=== PATIENT | female | born 1990 | race Caucasian/White ===

== ENCOUNTER 2016-06-30 07:36 | Day surgery (SDC) | payer BC ==
[2016-06-26 17:29] LABS: HEMOGLOBIN 11.4 g/dL (12.0-16.0)
[2016-06-26 18:03] LABS: HEMATOCRIT 34.3 % (36.0-48.0)
--- NOTE | ~2016-06-30 | OP ---
Record Of Operation [facility] [address] [place]. [address] NAME: YAIMA JEWELL : 89 STATUS : REG [facility]#: [id number] AGE: 25 ADM/REG DATE : 06/30/16 MR#: [id number] REPORT SERV DATE: 06/30/16 DICTATED BY: ERASMO SMYTH DATE: 06/30/16 REPORT STATUS : Draft TRANSCRIBED BY: MODL DATE: 06/30/16 DATE OF PROCEDURE: 06/30/2016 PROCEDURE: Tonsillectomy and adenoidectomy. PREOPERATIVE DIAGNOSIS: Chronic tonsillitis. POSTOPERATIVE DIAGNOSIS: Chronic tonsillitis. ANESTHESIA: General endotracheal. COMPLICATION: None. FINDINGS: The patient was taken to the OR, placed in supine position. She then was anesthetized, prepped, and draped in standard fashion. McIvor mouth gag was inserted. Red rubber catheter was used to elevate the soft palate. Adenoids were removed with suction electrocautery under mirror visualization. Right tonsil was grasped with curved clamp and excised from its fossa by Coblation. Same procedure performed on the opposite side. Bipolar electrocautery used to achieve meticulous hemostasis. Bismuth placed in each tonsillar fossa. The patient was awakened, extubated, and taken to recovery in good condition. JARRELL/ELIZABETH Erasmo Smyth M.D. / [id number] CC: Lena Henderson CRYSTAL
[~2016-06-30 07:36] MED LIST: ADVIL PO; [UNRECOGNIZED DRUG - OTHER] PO
== END 2016-06-30 16:18 | disposition home or self-care (01) ==
LOC: SDC 07:36
PROVIDERS: Otolaryngology
PROC: 0CTQ0ZZ Resection of Adenoids, Open Approach (ICD-10-PCS; 2016-06-30)
PROC: 0CTPXZZ Resection of Tonsils, External Approach (ICD-10-PCS; principal; 2016-06-30 08:45)
DX: J35.01 Chronic tonsillitis (principal); L30.9 Dermatitis, unspecified; Z79.899 Other long term (current) drug therapy; Z98.890 Other specified postprocedural states
CPT/HCPCS: 84703; 85014; 85018; 88304; A9270-GY; J0690; J1170; J2250; J2405; J3010